=== PATIENT | female | born 1940 | race Caucasian/White ===

== ENCOUNTER 2024-04-24 08:56 | Inpatient (IN) | payer OTHER, SELFPAY ==
[2024-04-23] VITALS (10 sets, daily range): BP systolic 138–160; BP diastolic 65–84
[2024-04-23 11:30] LABS: % Basophils 0.4 % (0-2); % Immature Granulocytes 0.6 % (0-0.5); % Lymphocytes 2.4 % (20.5-51.1); % Monocytes 5.9 % (1.7-9.3); % Neutrophils 90.7 % (42.2-75.2); Absolute Immature Granulocytes 0.1 10^3/uL (0-0.05); Absolute Lymphocytes 0.3 10^3/uL (1.2-3.4); Absolute Monocytes 0.6 10^3/uL (0.1-0.6); Absolute Neutrophils 9.6 10^3/uL (1.4-6.5); Hematocrit 41.3 % (37.0-47.0); Hemoglobin 13.9 g/dL (12.0-16.0); Mean Corp Hgb Conc. 33.7 g/dL (33.0-37.0); Mean Corpuscular Hgb 30.5 pg (27.0-31.0); Mean Corpuscular Volume 90.6 fL (81.0-99.0); Nucleated Red Blood Cells % 0 %; Platelet Count 221 10^3/uL (130-400); Red Blood Cell Count 4.56 10^6/uL (4.20-5.40); Red Cell Dist. Width 12.8 % (11.5-14.5); White Blood Cell Count 10.6 10^3/uL (4.8-10.8)
[2024-04-23 11:42] LABS: ALT (SGPT) 24 U/L (0-35); AST (SGOT) 39 U/L (14-36); Albumin 4.3 g/dl (3.5-5.0); Alkaline Phosphatase 96 U/L (38-126); Blood Urea Nitrogen 23 mg/dl (7-17); Calcium 9.5 mg/dl (8.4-10.2); Carbon Dioxide 24 mmol/L (22-30); Chloride 107 mmol/L (98-107); Glucose 155 mg/dl (70-99); Potassium 4.1 mmol/L (3.5-5.1); Sodium 144 mmol/L (135-145); Total Bilirubin 0.6 mg/dl (0.2-1.3); Total Protein 6.8 g/dl (6.3-8.2); eGFR > 60.00
--- NOTE | 2024-04-23 12:36 | ED.GENMED ---
History of Present Illness
<Zita Saunders PA-C - Last Filed: 04/23/24 20:17>
General
Chief Complaint: Fall
Source: patient, family (Daughter at bedside) and other (Caregiver at bedside)
Exam Limitations: dementia
Time Seen by Provider: 04/23/24 11:27
Nursing documentation reviewed up to this point in time: agreed with
History of Present Illness
History of Present Illness:
Patient is an 84-year-old female with history dementia presenting to the emergency department via EMS following unwitnessed fall. Patient's caregiver who was at bedside got to her house around 9 AM and found the patient on the ground and conscious.
He is unknown at exactly what time patient fell. Patient does not remember fall. Patient was able to take a few steps when EMS arrived although is complaining of pain in her right hip. No evidence of head trauma.
Patient denies any current chest pain, shortness of breath, dizziness, back pain, numbness/tingling lower extremities. No abdominal pain or urinary symptoms.
Patient not on any blood thinners.
Per patient's daughter�patient does suffer from dementia currently lives alone with a caregiver who visits 3 times daily. They are working towards assisted living in the near future.
Past History
<Zita Saunders PA-C - Last Filed: 04/23/24 20:17>
Past History
ED Past Medical History: Cancer (Ovarian)
ED Past Surgical History: Gynecological
Social History
Tobacco: Non-smoker
Alcohol: None
Drug: None
Review of Systems
<Zita Saunders PA-C - Last Filed: 04/23/24 20:17>
Review of Systems
Allergies reviewed?: Yes
All Other Systems: ROS reviewed and negative except as documented in HPI and ROS
Phy Exam
<Zita Saunders PA-C - Last Filed: 04/23/24 20:17>
Physical Exam
Physical Exam:
GENERAL: No acute distress
HEENT: atraumatic, extraocular muscles intact, no signs of entrapment, dentition intact, no other obvious trauma
NECK: no midline tenderness, normal range of motion, no other obvious trauma
BACK: no midline tenderness, no other obvious trauma
CHEST: no tenderness, no flail segment, no subcutaneous emphysema, no other obvious trauma
LUNGS: clear to auscultation bilaterally
CARDIOVASCULAR: regular rate and rhythm
ABDOMEN: soft, non-tender, no masses, no other obvious trauma
PELVIS: stable, no obvious injury
EXTREMITIES: Mild tenderness near right greater trochanter and pain with internal/external rotation of right hip. Left hip nontender with full range of motion. No bony tenderness of bilateral lower extremities. Upper extremities atraumatic with
full range of motion. Great distal pulse in bilateral upper and lower extremities. Sensation fully intact. No other evidence of traumatic injuries.
NEUROLOGIC: awake
Course
<Zita Saunders PA-C - Last Filed: 04/23/24 20:17>
Orders/Labs/Results
Orders:
Orders
04/23/24 11:22
CMP [Comprehensive Metabolic Panel] Urgent
Complete Blood Count/With Diff Urgent
Creatine Phosphokinase Urgent
Comment: ADD ON
04/23/24 12:22
Add On- LAB Urgent
Tests Added?: creatinine kinase
Electrocardiogram (*1) Urgent
Reason for Study: Fatigue / Weakness
CT Cervical Spine W/o Iv Contr Urgent
Comment:
Reason For Exam: unwitnessed fall
EKG- Treatment ONCE
0.9% Sodium Chloride 1000 ml [Nss] 1,000 ml IV BOLUS
Hip, Right 2-3 Views [CR Hip - RT w/wo Pel 2-3 Vw*] Urgent
Comment:
Reason For Exam: fall, R hip pain
Include a pelvis x-ray?: Yes
04/23/24 12:23
CT Head W/o Iv Contrast Urgent
Comment:
Reason For Exam: unwitnessed fall
Acetaminophen [Tylenol] 650 mg PO NOW STA
04/23/24 16:10
PT Consult [Pt Eval And Treat] Urgent
Activity Level: As Tolerated
04/23/24 16:47
Case Management Consult ONCE
Case Management Consult: Discharge Planning
04/23/24 19:48
Urinalysis Reflex To Culture Urgent
Date Specimen was Collected: 04/23/24
Time Specimen was Collected: 13:33
Abnormal Lab Results
04/23/24
11:22
Abs Immat Gran (auto) 0.1 H 10^3/uL
(0-0.05)
Absolute Neuts (auto) 9.6 H 10^3/uL
(1.4-6.5)
Absolute Lymphs (auto) 0.3 L 10^3/uL
(1.2-3.4)
Immature Gran % 0.6 H %
(0-0.5)
Neutrophils % 90.7 H %
(42.2-75.2)
Lymphocytes % 2.4 L %
(20.5-51.1)
BUN 23 H mg/dl
(7-17)
Glucose 155 H mg/dl
(70-99)
AST 39 H U/L
(14-36)
Creatine Kinase 435 H U/L
(30-135)
04/23/24 11:22
04/23/24 11:22
Vital Signs
Initial and Last Documented VS:
Initial Vital Signs
Temp Pulse Resp
98.9 F 97 20
04/23/24 11:09 04/23/24 11:09 04/23/24 11:09
Last Documented Vital Signs
Temp Pulse Resp BP Pulse Ox
98.9 F 77 22 138/65 94
04/23/24 11:09 04/23/24 19:45 04/23/24 14:30 04/23/24 19:45 04/23/24 19:45
<Zulma Vanegas MD - Last Filed: 04/23/24 13:14>
Orders/Labs/Results
Orders:
Orders
04/23/24 11:22
CMP [Comprehensive Metabolic Panel] Urgent
Complete Blood Count/With Diff Urgent
Creatine Phosphokinase Urgent
Comment: ADD ON
04/23/24 12:22
Add On- LAB Urgent
Tests Added?: creatinine kinase
Electrocardiogram (*1) Urgent
Reason for Study: Fatigue / Weakness
CT Cervical Spine W/o Iv Contr Urgent
Comment:
Reason For Exam: unwitnessed fall
EKG- Treatment ONCE
0.9% Sodium Chloride 1000 ml [Nss] 1,000 ml IV BOLUS
Hip, Right 2-3 Views [CR Hip - RT w/wo Pel 2-3 Vw*] Urgent
Comment:
Reason For Exam: fall, R hip pain
Include a pelvis x-ray?: Yes
04/23/24 12:23
CT Head W/o Iv Contrast Urgent
Comment:
Reason For Exam: unwitnessed fall
Acetaminophen [Tylenol] 650 mg PO NOW STA
04/23/24 16:10
PT Consult [Pt Eval And Treat] Urgent
Activity Level: As Tolerated
04/23/24 16:47
Case Management Consult ONCE
Case Management Consult: Discharge Planning
04/23/24 19:48
Urinalysis Reflex To Culture Urgent
Date Specimen was Collected: 04/23/24
Time Specimen was Collected: 13:33
Abnormal Lab Results
04/23/24
11:22
Abs Immat Gran (auto) 0.1 H 10^3/uL
(0-0.05)
Absolute Neuts (auto) 9.6 H 10^3/uL
(1.4-6.5)
Absolute Lymphs (auto) 0.3 L 10^3/uL
(1.2-3.4)
Immature Gran % 0.6 H %
(0-0.5)
Neutrophils % 90.7 H %
(42.2-75.2)
Lymphocytes % 2.4 L %
(20.5-51.1)
BUN 23 H mg/dl
(7-17)
Glucose 155 H mg/dl
(70-99)
AST 39 H U/L
(14-36)
Creatine Kinase 435 H U/L
(30-135)
04/23/24 11:22
04/23/24 11:22
Vital Signs
Initial and Last Documented VS:
Initial Vital Signs
Temp Pulse Resp
98.9 F 97 20
04/23/24 11:09 04/23/24 11:09 04/23/24 11:09
Last Documented Vital Signs
Temp Pulse Resp BP Pulse Ox
98.9 F 77 22 138/65 94
04/23/24 11:09 04/23/24 19:45 04/23/24 14:30 04/23/24 19:45 04/23/24 19:45
<Zita Saunders PA-C - Last Filed: 04/23/24 20:17>
MDM/Problems Addressed
Differential Diagnosis Includes:
Not limited to: Hip contusion, hip fracture, hyponatremia, cardiac arrhythmia, dehydration, rhabdomyolysis, cervical spine fracture, intraparenchymal bleed, etc.
MDM/Problems Addressed:
84-year-old female presenting following unwitnessed fall at home. Patient found on ground this morning by digital artist�unknown how long. Patient unable to contribute to history due to dementia. Vital stable. Physical exam as above. Patient with no
acute complaints. Patient is conversational with fluid speech. Patient has no evidence of head or neck trauma. She does have mild tenderness to right greater trochanter and pain with range of motion of right hip. No evidence of other extremity
traumatic injuries. Bilateral upper and lower extremities neurovascularly intact. Labs initiated in triage without any clinically significant abnormalities. Given unknown amount of time on ground�will add on CK. Will obtain EKG. Will check CT
head, C-spine. Will check x-ray right hip with pelvis.
Update: CK mildly elevated 435. Patient was given a liter of fluids. EKG without any acute ischemic changes or arrhythmias. CT head and C-spine without any acute abnormalities. Hip x-ray without any evidence of acute fracture. Patient
well-appearing, in no apparent discomfort. PT was consulted to evaluate patient's ambulation status. Did discuss with physical therapist who was states patient was able to weight-bear although unsteady. PT recommending either placement or 24-hour
care at home. A case management consult was placed to discuss thoroughly with patient's son and daughter (POA). Eventually�it was decided that patient will be in a rehab facility. Patient will be admitted overnight pending rehab/inpatient
facility placement. Patient accepted to hospital service in stable condition. Patient seen with attending physician.
Chronic conditions affecting care:
Dementia
Acute Exacerbation and/or Progression of Chronic Illness:
N/A
<Zita Saunders PA-C - Last Filed: 04/23/24 20:17>
*Radiology
Radiology exam reviewed: preliminary read by ED provider and radiology read reviewed
*Pulse Oximetry
Patient hypoxic: no
*EKG
Interpreted by ED Provider?: Yes
EKG Intrepretation Date: 04/23/24
Interpretation: normal
Comparison EKG: no changes
Heart Rate: 90
Rate: normal
Rhythm: sinus
Ischemia: no ischemia
*Road Production General Manager Interpretation
Rate: normal
Interpretation: normal
Heart Rate: 76
Rhythm: sinus
*Critical Care Note
Total Time (30-74mins, 75-104mins- exclusive of procedures): Not Applicable
<Zita Saunders PA-C - Last Filed: 04/23/24 20:17>
Patient Management
Discussion with other providers: Hospitalist and Features Reporter (PT, Case management)
Escalation/DeEscalation of care consider admission/obs:
Admit for rehab placement
ED Attending Note
<Zita Saunders PA-C - Last Filed: 04/23/24 20:17>
-
Portions of this chart may have been created with voice recognition software.� Occasional wrong word or��sound alike� substitutions may have occurred due to the inherent limitations of voice recognition software.
<Zulma Vanegas MD - Last Filed: 04/23/24 13:14>
ED Attending Note
Patient seen and examined by attending physician: Yes
I performed the substantive portion of visit, reviewed & personally made and approve the management plan that is documented in note by myself or SNEHAL.: Yes
ED Attending Note:
84-year-old female presents emergency department after being found on the floor next to the bed awake and alert, not more confused than usual, by her RN this morning. Patient was last seen last night, unclear when this event actually happened.
Patient suffers from dementia and history extremely limited, patient denies any specific complaints with the exception of very mild right hip area discomfort when EMS was moving her. Patient denies headache, neck pain, chest pain, etc. RN and very
attentive daughter at bedside, history further obtained from them. On exam, no signs of head or facial injury, abdomen soft and nontender, lungs CTA. Bilateral lower extremities with full range of motion without perceived or obvious discomfort, no
bruising swelling redness or deformity, distal pulses normal. Workup in progress.
Discharge Plan
Departure
Patient Disposition: Admit
Date of Disposition: 04/23/24
Time of Disposition: 18:59
Presentation/result/management discussed w/ accepting MD/DO: Hospitalist
Discharge Problem:
Fall, Ambulatory dysfunction
Prescriptions:
No Action
buspirone 5 mg tablet
5 mg PO BID
Theragen Tablet
1 tab PO DAILY
Referrals:
Taye Murguia DO [Family Provider] -
Interventions
Interventions:
*Risk Screen - Suicide Last Done: 04/23/24 11:14
*General Assessment Last Done: 04/23/24 11:14
*Neglect/Abuse Screening Last Done: 04/23/24 11:14
*ED COVID-19 Vaccine History Last Done: 04/23/24 11:14
ED-Musculoskeletal Assessment Last Done: 04/23/24 11:14
ED- Neurological Assessment Last Done: 04/23/24 11:14
ED-Skin Assessment Last Done: 04/23/24 11:14
Discharge Date and Time
Print Language: [id number]
[2024-04-23] MEDS: NSS 1000 IV (12:40)
[2024-04-23] MEDS: TYLENOL 650 MG PO (12:40)
[2024-04-23 13:28] LABS: Creatine Phosphokinase 435 U/L (30-135)
--- NOTE | 2024-04-23 17:18 | CM ---
Addendum entered by Carmen Causey RN 04/23/24 18:45:
CM spoke with daughter and son in room. Daughter is agreeable to placement. Daughter expressed preference for [facility]. Daughter would be agreeable to [facility] as alternatives. CM sent referrals.
CM updated bedside RN and ED PA.
Addendum entered by Carmen Causey RN 04/23/24 17:47:
CM is awaiting daughter to be available to discuss discharge plan.
Original Note:
CM was consulted for discharge planning. CM spoke with patient's son who stated that the patient does lives alone. She has a high speed printer operator during the day that 'stops in' three times per day. CM was updated by PT. PT stated that patient does need 24 hour
care and home PT or SNF.
Patient's son will discuss options with sister. CM will await family's decision on discharge plan.
Patient's son would be agreeable to [facility] if home discharge.
--- NOTE | 2024-04-23 21:37 | HPS.HSE ---
Family Physician
-
Family Physician: Taye Murguia
Chief Complaint
-
Status post fall
History of Present Illness
84-year-old female with past medical history of dementia and anxiety who presents to the emergency department after being found by home health aide.
Patient apparently went to bed in usual state of health. This morning when home of his arrived patient was found down in between bedroom and bathroom. She was alert and at her baseline mental status which is profound but pleasant dementia. She
complained of hip pain and was therefore brought to the emergency department. According to the daughter the patient has had 4 falls in the last few months. She has been having pain and ambulatory difficulties for several months. She denied
orthostatic dizziness nausea or vomiting. However while she was in the ED she did vomit twice. Was nonbloody and nonbilious. Patient denied having urinary symptoms. There is been no recent fevers or chills. Denies any flank pain or back pain.
Intermittent department she was afebrile blood pressure was 130/55 with a normal pulse. CBC was clearly normal. Chemistries were also normal except for elevated CPK of 435.
CT of the head shows no acute intracranial process. Skeletal survey x-rays was negative for acute fracture.
Medical History
Past Medical History
Past Medical History: Reports Dementia
Additional Past Medical History:
Anxiety
Past Surgical History: Reports None
Social History
Tobacco: Non-smoker
Alcohol: None
Drug: None
Personal:
Living: With Family
Family History
Family History: Not pertinent
Allergies / Home Medications
Allergies reflects when Allergies were last updated in [employer].
Home Medications with original date entered in [employer]
Allergy/Medication List:
Allergies
Allergy/AdvReac Type Severity Reaction Status Date / Time
No Known Allergies Allergy Verified 11/13/20 19:01
Home Medications
buspirone 5 mg tablet 5 mg PO BID 04/23/24
therapeutic multivitamin 1 tab PO DAILY 04/23/24
Review of Systems
-
Unable to obtain full review of systems at this time due to: Dementia
History Source: Family
Constitutional: Reports No Symptoms
EENT: Reports No Symptoms
Cardiac: Reports No Symptoms
: Reports No Symptoms
Musculoskeletal: Reports No Symptoms
Skin: Reports No Symptoms
Neurological: Reports No Symptoms
Endocrine: Reports No Symptoms
Hematologic/Lymphatic: Reports No Symptoms
Psych: Reports No Symptoms
Physical Exam
Vital Signs
Vital Signs
Temp Pulse Resp BP Pulse Ox
98.9 F 77 22 138/65 94
04/23/24 11:09 04/23/24 19:45 04/23/24 14:30 04/23/24 19:45 04/23/24 19:45
Physical Exam
General: Well Developed, Well Nourished, No Apparent Distress and Comfortable
HEENT: NormoCephalic, Moist mucous membranes, Atraumatic and PERRLA
Respiratory: Clear
Cardiac: S1/S2 and Regular Rhythm
Breast: Deferred by me
GI: Soft, Non Tender, Non Distended and Normal Bowel Sounds
Rectal: Deferred by Provider
Genito-urinary: Deferred by me
Musculoskeletal: No Clubbing, No Cyanosis and No Edema
Skin: Warm
Neuro: Alert (Not oriented to place or time)
Hematologic/Lymphatic: No Lymphadenopathy
Psych: Calm
Laboratory Results
-
04/23/24 11:22
04/23/24 11:22
Laboratory Results
Total Bilirubin 0.6 mg/dl (0.2-1.3) 04/23/24 11:22
AST 39 U/L (14-36) H 04/23/24 11:22
ALT 24 U/L (0-35) 04/23/24 11:22
Alkaline Phosphatase 96 U/L (38-126) 04/23/24 11:22
Data Reviewed
-
Diagnostic Radiology: Image Personally Visualized and interpreted
CT Scan: Report Reviewed by me
Lab Data: Labs Reviewed by me
Old Records: Reviewed
Impression/Plan
-
IMPRESSION:
84-year-old with advanced dementia who lives with home health aide comes to the emergency department following a fall and being found down at home. Found to have elevated CPK but otherwise normal labs. Vital signs are completely stable. She has
no acute skeletal trauma. She has had multiple falls in the last few months and has ambulatory difficulties at baseline.
PLAN:
Falls - Recurrent falls. No fracture. No focal deficits. No signs of infection.
- admit to med/surg obs
- minimal pain now, tylenol prn
- antiemetics, advance diet
- mild cpk elevation, continue iv fluids and repeat in am
- PT eval
- case management, patient to go to rehab in am, family deciding on where
- dvt ppx - lovenox sq
Code Status - full code
[2024-04-23] MEDS: BUSPAR 5 MG PO (23:13)
[2024-04-23] MEDS: ZOFRAN 4 MG IV (23:13)
[2024-04-23] MEDS: LR 1000 IV (23:49)
[2024-04-24 06:25] LABS: Blood Urea Nitrogen 18 mg/dl (7-17); Calcium 8.6 mg/dl (8.4-10.2); Carbon Dioxide 28 mmol/L (22-30); Chloride 106 mmol/L (98-107); Creatine Phosphokinase 1474 U/L (30-135); Glucose 110 mg/dl (70-99); Potassium 3.7 mmol/L (3.5-5.1); Sodium 141 mmol/L (135-145); eGFR > 60.00
--- NOTE | 2024-04-24 08:11 | W.PN.HOSP.TC ---
Today's Communication/Plan
-
see A/P
Assessment / Plan
Assessment / Plan
HPI: 84-year-old female with past medical history of dementia and anxiety who presented to the emergency department after being found by home health aide.
She was alert and pleasantly demented. She complained of hip pain and was therefore brought to the emergency department. According to the daughter the patient has had 4 falls in the last few months. She has been having pain and ambulatory
difficulties for several months.
CT of the head shows no acute intracranial process. Skeletal survey x-rays was negative for acute fracture.
A/P:
# Recurrent falls.
No fracture. No focal deficits. No signs of infection.
minimal pain now, tylenol prn
antiemetics, advance diet
Mild cpk elevation, continue iv fluids and follow repeat CPK level
PT OT eval
case management for dispo
# Dementia
Pt is awake, not orientated
dvt ppx - lovenox sq
Code Status - full code
Anticipated Discharge: > 48 hours
Subjective/Interval History
-
Date of Service: April 24, 2024
Objective Data
-
Labs:
Laboratory Results
04/24/24
05:43
Sodium 141
Potassium 3.7
Chloride 106
Carbon Dioxide 28
BUN 18 H
Creatinine 0.9
Glucose 110 H
Calcium 8.6
Vital Signs:
Vital Signs
Temp Pulse Resp BP Pulse Ox
37.2 C 80 14 140/72 93
04/23/24 11:09 04/23/24 23:42 04/23/24 23:42 04/23/24 23:42 04/23/24 23:42
I&O
04/23/24 04/24/24 04/25/24
06:59 06:59 06:59
Intake Total 800 / 800
Output Total 100 / 100
Balance 700 / 700
--- NOTE | 2024-04-24 08:36 | CM ---
Addendum entered by Carmen Causey RN 04/24/24 16:19:
CM updated daughter at bedside. Daughter would like additional referrals sent to [facility] and [facility].
Addendum entered by Carmen Causey RN 04/24/24 14:30:
[facility] and [facility] cannot accept. [facility] is able to accept.
CM left message for daughter to discuss SNF options.
Original Note:
CM received call from patient's daughter requesting that [facility] not be an option for placement. They are requesting [facility]'. CM left message to clarify what [facility] facility they are referring to.
CM contacted Tori at [facility] for her to review referral.
[2024-04-24] MEDS: BUSPAR 5 MG PO ×2 (08:46→21:08)
[2024-04-24 10:24] LABS: Urine Albumin Trace (Neg - Trace); Urine Bilirubin Negative (Negative); Urine Character Clear (Clear); Urine Color Yellow; Urine Glucose Negative (Negative); Urine Ketone Trace (Negative); Urine Leukocyte Negative (Negative); Urine Nitrite Negative (Negative); Urine Occult Blood Negative (Negative); Urine Urobilinogen Negative (Neg - 1+)
[2024-04-24 11:22] VITALS: BMI 25.2
[2024-04-24 11:38] VITALS: BP 134/61
--- NOTE | 2024-04-24 16:06 | PTCARENOTE ---
Pt OOB to bathroom several times today. Was doing well w/ rolling walker and assist x 1. Now pt w/ generalized weakness and unable to bear weight - had to be lifted by staff back into bed.
[2024-04-24] MEDS: LR 1000 IV (17:13)
[2024-04-24] MEDS: LOVENOX 40 MG SC (19:26)
[2024-04-24 20:36] VITALS: BP 153/85
[2024-04-24 20:37] VITALS: BMI 24.5
[2024-04-24] MEDS: LR IV (21:02)
[2024-04-24] MEDS: TYLENOL 650 MG PO (21:08)
[2024-04-24 23:04] VITALS: BP 141/71
[2024-04-25] MEDS: LR IV ×2 (03:30→10:52)
[2024-04-25] MEDS: LR 1000 IV (03:30)
--- NOTE | 2024-04-25 04:10 | DOWNTIME ---
There was a [employer] Client Sorter Operator Downtime on 04/25/2024 from 0100 to 04/25/2024 at 0355. Downtime documentation of patient's care, including medication administrations, has been reconciled in the electronic record per guidelines. Refer to the
patient's paper chart under the miscellaneous tab to see printed paper medication records and downtime forms.
[2024-04-25 05:21] VITALS: BMI 23.1
[2024-04-25 06:48] LABS: Hematocrit 39.1 % (37.0-47.0); Hemoglobin 13.4 g/dL (12.0-16.0); Mean Corp Hgb Conc. 34.3 g/dL (33.0-37.0); Mean Corpuscular Hgb 30.9 pg (27.0-31.0); Mean Corpuscular Volume 90.1 fL (81.0-99.0); Platelet Count 170 10^3/uL (130-400); Red Blood Cell Count 4.34 10^6/uL (4.20-5.40); Red Cell Dist. Width 12.7 % (11.5-14.5)
[2024-04-25 07:16] LABS: Blood Urea Nitrogen 13 mg/dl (7-17); Calcium 8.5 mg/dl (8.4-10.2); Carbon Dioxide 29 mmol/L (22-30); Chloride 106 mmol/L (98-107); Creatine Phosphokinase 1347 U/L (30-135); Estimated Creatinine Clearance 50 ml/min; Glucose 98 mg/dl (70-99); Magnesium 1.7 mg/dl (1.6-2.3); Potassium 3.6 mmol/L (3.5-5.1); Sodium 143 mmol/L (135-145); eGFR > 60.00
[2024-04-25 07:25] VITALS: BP 160/83
[2024-04-25] MEDS: BUSPAR 5 MG PO ×2 (08:01→19:57)
--- NOTE | 2024-04-25 10:30 | W.PN.HOSP.TC ---
Today's Communication/Plan
-
see A/P
Assessment / Plan
Assessment / Plan
HPI: 84-year-old female with past medical history of dementia and anxiety who presented to the emergency department after being found by home health aide.
She was alert and pleasantly demented. She complained of hip pain and was therefore brought to the emergency department. According to the daughter the patient has had 4 falls in the last few months. She has been having pain and ambulatory
difficulties for several months.
CT of the head shows no acute intracranial process. Skeletal survey x-rays was negative for acute fracture.
A/P:
# Recurrent falls.
No fracture. No focal deficits. No signs of infection.
minimal pain now, tylenol prn
antiemetics, advanced diet to regular
Mild cpk elevation, continue iv fluids and follow repeat CPK level
PT OT eval recc SNF vs HH
CM on board for dispo to SNF
# Dementia
Pt is awake, not orientated
dvt ppx - lovenox sq
Code Status - full code
DW son at bedside
Anticipated Discharge: 24 - 48 hours
Subjective/Interval History
-
Date of Service: April 25, 2024
Objective Data
-
Labs:
Laboratory Results
04/25/24
06:23
WBC 4.0 L
Hgb 13.4
Hct 39.1
Plt Count 170 D
Sodium 143
Potassium 3.6
Chloride 106
Carbon Dioxide 29
BUN 13
Creatinine 0.8
Glucose 98
Calcium 8.5
Vital Signs:
Vital Signs
Temp Pulse Resp BP Pulse Ox
36.9 C 83 19 160/83 98
04/25/24 07:25 04/25/24 07:25 04/25/24 07:25 04/25/24 07:25 04/25/24 08:15
I&O
04/24/24 04/25/24 04/26/24
06:59 06:59 06:59
Intake Total 800 / 800 1400 / 1400
Output Total 100 / 100
Balance 700 / 700 1400 / 1400
Review of Systems
-
All other systems: Reviewed and negative
Physical Exam
-
General: Well Developed, Well Nourished, No Apparent Distress, Comfortable and Conversant; Negative Respiratory Distress
HEENT: Normocephalic, Atraumatic, Nose Appears Normal and Ears Appear Normal; Negative Oxygen
Respiratory: Clear to Auscultation and Non Labored Respirations; Negative Accessory Resp Muscle Use
Cardiac: Regular Rhythm and S1/S2
GI: Soft, Nontender, Nondistended and Normal Bowel Sounds
Skin: Warm and Dry
Neuro: Awake and Alert
Psych: Calm
Data Reviewed
-
Labs: Labs Reviewed by me
[2024-04-25] MEDS: NSS 1000 IV (10:55)
--- NOTE | 2024-04-25 12:00 | CM ---
Addendum entered by China Olvera 04/25/24 15:28:
TC to [facility] spoke with Lawrence
Approved skilled rehab
Auth # [id number]
start date 04/26/24, LCD and NRD 04/30/24
Updates to
ambulance auth# [id number]
Addendum entered by China Olvera 04/25/24 15:18:
correction Dr Strange NPI#[id number]
Original Note:
Spoke with patient bedside, confused.
Spoke with son Sedrick and daughter Annette re d/c plan.
Facilities reviewed and [facility] has a bed available tomorrow.
[facility] NPI # [id number]
Dr Gillette NPI# [id number]
Await updated therapy notes.
Will need to initiate insurance auth.
IMM reviewed with Annette and emailed to [email or web address]
Plan: Skilled rehab via ambulance once auth received.
[2024-04-25 12:16] VITALS: PULSE 75; O2SAT 96
[2024-04-25 15:35] VITALS: BP 154/84
[2024-04-25] MEDS: LOVENOX 40 MG SC (17:46)
[2024-04-25 23:25] VITALS: BP 162/90
[2024-04-26] MEDS: NSS 1000 IV (02:42)
[2024-04-26 06:29] LABS: Hematocrit 41.2 % (37.0-47.0); Hemoglobin 14.1 g/dL (12.0-16.0); Mean Corp Hgb Conc. 34.2 g/dL (33.0-37.0); Mean Corpuscular Hgb 31.9 pg (27.0-31.0); Mean Corpuscular Volume 93.2 fL (81.0-99.0); Mean Platelet Volume 9.1 fL (7.4-10.4); Platelet Count 177 10^3/uL (130-400); Red Blood Cell Count 4.42 10^6/uL (4.20-5.40); Red Cell Dist. Width 12.8 % (11.5-14.5); White Blood Cell Count 3.8 10^3/uL (4.8-10.8)
[2024-04-26 07:07] LABS: Blood Urea Nitrogen 14 mg/dl (7-17); Calcium 8.4 mg/dl (8.4-10.2); Carbon Dioxide 29 mmol/L (22-30); Chloride 106 mmol/L (98-107); Creatine Phosphokinase 1067 U/L (30-135); Estimated Creatinine Clearance 50 ml/min; Glucose 115 mg/dl (70-99); Magnesium 1.8 mg/dl (1.6-2.3); Potassium 3.9 mmol/L (3.5-5.1); Sodium 142 mmol/L (135-145); eGFR > 60.00
[2024-04-26 07:30] VITALS: BP 162/94
[2024-04-26] MEDS: FLUSH (NSS) 1 FLUSH IV (09:54)
--- NOTE | 2024-04-26 09:57 | W.PN.HOSP.TC ---
Addendum entered and electronically signed by Fany Gupta MD 04/27/24 11:31:
# Non traumatic rhabdomyolysis
Addendum entered and electronically signed by Fany Gupta MD 04/26/24 11:47:
Total DC time 35 minutes
Original Note:
Today's Communication/Plan
-
for SNF
Assessment / Plan
Assessment / Plan
HPI: 84-year-old female with past medical history of dementia and anxiety who presented to the emergency department after being found by home health aide.
She was alert and pleasantly demented. She complained of hip pain and was therefore brought to the emergency department. According to the daughter the patient has had 4 falls in the last few months. She has been having pain and ambulatory
difficulties for several months.
CT of the head shows no acute intracranial process. Skeletal survey x-rays was negative for acute fracture.
A/P:
# Recurrent falls.
No fracture. No focal deficits. No signs of infection.
minimal pain now, tylenol prn
antiemetics, advanced diet to regular
Mild cpk elevation, continue iv fluids and follow repeat CPK level
PT OT eval recc SNF vs HH
CM on board for dispo to SNF
# Dementia
mood stable, pleasant
Pt is awake, not orientated
# HTN
Start low dose Norvasc 2.5 mg daily
dvt ppx - lovenox sq
Code Status - full code
DW CM
Anticipated Discharge: Today
Subjective/Interval History
-
Date of Service: April 26, 2024
Objective Data
-
Labs:
Laboratory Results
04/26/24
06:10
WBC 3.8 L
Hgb 14.1
Hct 41.2
Plt Count 177
Sodium 142
Potassium 3.9
Chloride 106
Carbon Dioxide 29
BUN 14
Creatinine 0.8
Glucose 115 H
Calcium 8.4
Vital Signs:
Vital Signs
Temp Pulse Resp BP Pulse Ox
37.0 C 91 18 162/94 93
04/26/24 07:30 04/26/24 07:30 04/26/24 07:30 04/26/24 07:30 04/26/24 07:30
I&O
04/25/24 04/26/24 04/27/24
06:59 06:59 06:59
Intake Total 1400 / 1400 720 / 720
Balance 1400 / 1400 720 / 720
Review of Systems
-
All other systems: Reviewed and negative
Physical Exam
-
General: Well Developed, Well Nourished, No Apparent Distress, Comfortable and Conversant; Negative Respiratory Distress
HEENT: Normocephalic, Atraumatic, Nose Appears Normal and Ears Appear Normal; Negative Oxygen
Respiratory: Clear to Auscultation and Non Labored Respirations; Negative Accessory Resp Muscle Use
Cardiac: Regular Rhythm and S1/S2
GI: Soft, Nontender, Nondistended and Normal Bowel Sounds
Skin: Warm and Dry
Neuro: Awake and Alert
Psych: Calm
Data Reviewed
-
Labs: Labs Reviewed by me
[2024-04-26] MEDS: BUSPAR 5 MG PO (10:03)
--- NOTE | 2024-04-26 10:37 | CM ---
Addendum entered by China Olvera 04/26/24 10:59:
Trista from [facility] updated re transport time.
Left VM for daughter Annette re transport time.
Son Sanchez updated via text.
Original Note:
Patient for transfer to [facility] today.
Ambulance transport required.
Forms completed.
IMM completed yesterday.
Plan: transfer to Skilled rehab today
[facility]
Report# [phone]
[2024-04-26] MEDS: NORVASC 2.5 MG PO (10:54)
--- NOTE | 2024-04-26 11:26 | W.DCSUMMARY ---
Discharge Summary
Discharge Data
Date of Admission: 04/24/24
Date of Discharge: 04/26/24
-
Pending Results: No
Hospital Course
Principal Diagnosis:
Recurrent falls.
Mild rhabdomyolysis
Essential hypertension (HTN)
Chronic Diagnoses:�
Dementia, mood stable, pleasant
Consultations:�
None
Procedures:�
None
Clinical course:�
This is a 84-year-old female with past medical history as stated above, who presented to the emergency department after being found on the floor by home health aide.
Problem 1:
Recurrent falls without fracture, with mild rhabdomyolysis.
She was given gentle IV fluid for her mild rhabdomyolysis.
Patient was seen by PT OT and was recommended SNF.
She was discharged to SNF per recommendation.
Problem 2:
HTN
Patient was started with low-dose Norvasc 2.5 mg daily while in the hospital for better blood pressure control.
As for the rest of her medical problems, they were stable during her hospital stay.
Discharge Plan
-
Patient Disposition: Long Term/SNF
Discharge Diagnosis/Procedures: Recurrent falls with mild rhabdomyolysis;
Dementia;
Hypertension
Condition: Fair
Diet: As tolerated
Activity: As tolerated
Driving Restrictions: No driving
Referrals:
Taye Murguia DO [Family Provider] - in less than 1 week
Additional Discharge Medication Instructions: you were started with low dose Norvasc for better blood pressure control
Prescriptions:
New
amlodipine 2.5 mg Tablet
2.5 mg PO DAILY Qty: 30 0RF
Continued
buspirone 5 mg tablet
5 mg PO BID
therapeutic multivitamin Tablet
1 tab PO DAILY
Discharge Orders:
Discharge Patient (As Directed); Ordered 04/26/24
Ordered By: Fany Gupta
Discharge Date and Time
Print Language: SERBIAN
[2024-04-26 15:43] VITALS: BP 154/82
--- NOTE | 2024-04-27 07:53 | PN.CDI ---
CDI
- -
CDI:
Physician Documentation Request
Admit Date: 04/24/24 08:56
Dear Doctor Candy,
Please review the following and provide your response in the progress notes.
Clinical Indicators:
- 04/23 ER Physician indicates patient fell and was found on ground for unknown period of time by caregiver.
- 04/26 DC Summary 'Recurrent falls without fracture, with mild rhabdomyolysis'
Laboratory Tests
04/23/24 04/24/24 04/26/24
11:22 05:43 06:10
Creatine Kinase 435 H 1474 H D 1067 H
Please provide a diagnosis that supports the above lab abnormalities and evaluation/monitoring.
Traumatic rhabdomyolysis
Non traumatic rhabdomyolysis
Other (please specify)
Use of terms such as suspected, likely, concern for, or probable (associated with a specific diagnosis that is being evaluated, monitored, or treated as if it exists) are acceptable and can be coded in the inpatient setting, when documented at the
time of discharge.
Thank you,
Mary Beth Thornton RN
CDI Specialist
Please use your independent medical judgment in providing your response.
== END 2024-04-26 16:38 | DRG 558 ==
LOC: 4 WEST ACU 08:56
PROVIDERS: Emergency Medicine; Physician Assistant; ADMITTING PHYSICIAN Internal Medicine; ATTENDING PHYSICIAN Internal Medicine; EMERGENCY PHYSICIAN Emergency Medicine; FAMILY PHYSICIAN Family Medicine
DX: M62.82 Rhabdomyolysis (principal); F03.94 Unspecified dementia, unspecified severity, with anxiety; I10 Essential (primary) hypertension; R29.6 Repeated falls; W19.XXXA Unspecified fall, initial encounter; Y92.008 Other place in unspecified non-institutional (private) residence as the place of occurrence of the external cause; Z79.899 Other long term (current) drug therapy
CPT/HCPCS: 70450; 72125; 73502; 80048; 80053; 81003; 82550; 83735; 85025; 85027; 87070; 93005; 96360; 97530; 99285

== ENCOUNTER → 2024-07-02 09:43 | Outpatient (REF) | payer OTHER, SELFPAY ==
[2024-07-02 10:15] LABS: % Basophils 1.2 % (0-2); % Eosinophils 3.7 % (0-6); % Immature Granulocytes 0.2 % (0-0.5); % Lymphocytes 40.7 % (20.5-51.1); % Monocytes 9.2 % (1.7-9.3); Absolute Basophils 0.1 10^3/uL (0-0.2); Absolute Eosinophils 0.2 10^3/uL (0-0.7); Absolute Lymphocytes 2.1 10^3/uL (1.2-3.4); Absolute Monocytes 0.5 10^3/uL (0.1-0.6); Absolute Neutrophils 2.3 10^3/uL (1.4-6.5); Hematocrit 40.2 % (37.0-47.0); Mean Corp Hgb Conc. 32.3 g/dL (33.0-37.0); Mean Corpuscular Hgb 30.7 pg (27.0-31.0); Mean Platelet Volume 10.6 fL (7.4-10.4); Nucleated Red Blood Cells % 0 %; Platelet Count 232 10^3/uL (130-400); Red Blood Cell Count 4.23 10^6/uL (4.20-5.40); Red Cell Dist. Width 13.3 % (11.5-14.5); White Blood Cell Count 5.2 10^3/uL (4.8-10.8)
[2024-07-02 10:29] LABS: Blood Urea Nitrogen 23 mg/dl (7-17); Calcium 9.1 mg/dl (8.4-10.2); Carbon Dioxide 28 mmol/L (22-30); Chloride 108 mmol/L (98-107); Glucose 100 mg/dl (70-99); HDL Cholesterol 57 mg/dl; LDL Cholesterol, Calculated 114 mg/dl; Potassium 4.3 mmol/L (3.5-5.1); Sodium 141 mmol/L (135-145); Total Cholesterol 189 mg/dl (50-199); Triglyceride 94 mg/dl (10-149); Very Low Density Lipoprotein 18 mg/dl (0-30)
[2024-07-02 10:46] LABS: Free T4 1.28 ng/dl (0.78-2.19); Vitamin D, 25-OH*** 22.6 ng/mL (30-80)
[2024-07-02 10:59] LABS: TSH 1.31 uIU/ml (0.47-4.68)
[2024-07-02 11:09] LABS: Glycohemoglobin (HgbA1c) 6.1 % (4.0-5.6)
[2024-07-02 11:47] LABS: Vitamin B12 401 pg/ml (239-931)
== END ==
LOC: OLABSOL 09:43
PROVIDERS: ATTENDING PHYSICIAN Nurse Practitioner Adult Health
DX: E55.9 Vitamin D deficiency, unspecified (principal); R94.4 Abnormal results of kidney function studies; E78.5 Hyperlipidemia, unspecified; E03.9 Hypothyroidism, unspecified; D11.9 Benign neoplasm of major salivary gland, unspecified; D51.9 Vitamin B12 deficiency anemia, unspecified
CPT/HCPCS: 36415; 80048; 80061; 82306; 82607; 83036; 84439; 84443; 85025

== ENCOUNTER → 2024-07-24 13:35 | Outpatient (REF) | payer OTHER, SELFPAY | LOC: RAD 13:35 | PROVIDERS: ATTENDING PHYSICIAN Internal Medicine Geriatric Medicine; FAMILY PHYSICIAN Internal Medicine | DX: R60.0 Localized edema (principal) | CPT/HCPCS: 93970 ==

== ENCOUNTER → 2025-03-20 11:02 | Outpatient (REF) | payer OTHER, SELFPAY ==
[2025-03-20 11:57] LABS: Hematocrit 43.1 % (37.0-47.0); Hemoglobin 14.1 g/dL (12.0-16.0); Mean Corp Hgb Conc. 32.7 g/dL (33.0-37.0); Mean Corpuscular Volume 93.7 fL (81.0-99.0); Nucleated Red Blood Cells % 0 %; Platelet Count 274 10^3/uL (130-400); Red Cell Dist. Width 12.9 % (11.5-14.5)
[2025-03-20 12:20] LABS: Blood Urea Nitrogen 18 mg/dl (7-17); Calcium 9.3 mg/dl (8.4-10.2); Carbon Dioxide 30 mmol/L (22-30); Chloride 107 mmol/L (98-107); Glucose 125 mg/dl (70-99); HDL Cholesterol 53 mg/dl; LDL Cholesterol, Calculated 129 mg/dl; Potassium 4.7 mmol/L (3.5-5.1); Sodium 141 mmol/L (135-145); Very Low Density Lipoprotein 21 mg/dl (0-30); eGFR > 60.00
[2025-03-20 12:38] LABS: Vitamin D, 25-OH*** 24.1 ng/mL (30-80)
[2025-03-20 12:51] LABS: TSH 1.55 uIU/ml (0.47-4.68)
[2025-03-20 13:11] LABS: Vitamin B12 317 pg/ml (239-931)
[2025-03-20 14:23] LABS: Glycohemoglobin (HgbA1c) 6.6 % (4.0-5.6)
== END ==
LOC: OLABSOL 11:02
PROVIDERS: ATTENDING PHYSICIAN Nurse Practitioner Adult Health
DX: D72.9 Disorder of white blood cells, unspecified (principal); R73.09 Other abnormal glucose; R79.9 Abnormal finding of blood chemistry, unspecified; Z13.29 Encounter for screening for other suspected endocrine disorder; R94.6 Abnormal results of thyroid function studies; D51.0 Vitamin B12 deficiency anemia due to intrinsic factor deficiency; E55.9 Vitamin D deficiency, unspecified
CPT/HCPCS: 36415; 80048; 80061; 82306; 82607; 83036; 84439; 84443; 85025